=== PATIENT | female | born 1935 | race African-American/Black ===

== ENCOUNTER 2018-03-30 08:11 | Outpatient (CLI) | payer MEDICARE, OTHER ==
[2018-03-30] VITALS (9 sets, daily range): BP systolic 115–145; BP diastolic 63–80
[~2018-03-30] VITALS: Ht 154.9 cm; Wt 76.2 kg
[2018-03-30] MEDS ORDERED: MIDAZOLAM HCL/PF 2 MG/2 ML VIAL. ONE (08:39)
[2018-03-30] MEDS ORDERED: FLUMAZENIL 0.5 MG/5 ML VIAL. IV ONE (08:40)
[2018-03-30] MEDS ORDERED: fentaNYL PF VIAL 100 MCG/2 ML VIAL ONE (08:40)
[2018-03-30] MEDS ORDERED: NALOXONE 0.4 MG/ML VIAL. ONE (08:40)
[2018-03-30] MEDS ORDERED: MULT-697 PO (08:49)
[2018-03-30] MEDS ORDERED: PROP15DR EACHEYE (08:49)
[2018-03-30] MEDS ORDERED: ACET325T9 PO (08:49)
[2018-03-30] MEDS ORDERED: LIPITOR80 MG PO (08:49)
[2018-03-30] MEDS ORDERED: LISI1TAB7 PO (08:49)
[2018-03-30] MEDS ORDERED: PROAIR HFA8.5 GM INH (08:49)
[2018-03-30] MEDS ORDERED: FLUT1DIS IH (08:49)
[2018-03-30] MEDS ORDERED: CALC600T4 PO (08:49)
[2018-03-30] MEDS ORDERED: ESOM20CA PO (08:49)
[2018-03-30] MEDS ORDERED: CETI10TA16 PO (08:49)
[2018-03-30] MEDS ORDERED: CYCL1DRO EACHEYE (08:49)
[2018-03-30] MEDS ORDERED: HYDR25SU18 RC (08:49)
[2018-03-30] MEDS ORDERED: OMEG-165 PO (08:49)
[2018-03-30 08:52] LABS: BASO % 2 % (0-3); EOS # 0.4 x10^3/uL (0.0-0.7); EOS % 15 % (0-3); HEMATOCRIT 30.9 % (36.0-47.0); HEMOGLOBIN 10.6 g/dL (12.0-15.5); LYMPH # 0.5 x10^3/uL (1.0-4.8); LYMPH % 19 % (24-48); MEAN CORPUSCULAR HEMOGLOBIN 29 pg (25-35); MEAN CORPUSCULAR HGB CONC 34 g/dL (31-37); MEAN CORPUSCULAR VOLUME 86 fL (79-100); MONO # 0.1 x10^3/uL (0.0-1.1); MONO % 5 % (0-9); NEUT # 1.5 x10^3uL (1.8-7.7); NEUT % 60 % (31-73); PLATELET COUNT 209 x10^3/uL (140-400); RED BLOOD COUNT 3.61 x10^6/uL (3.50-5.40); RED CELL DISTRIBUTION WIDTH 15.5 % (11.5-14.5); WHITE BLOOD COUNT 2.5 x10^3/uL (4.0-11.0)
[2018-03-30 08:58] LABS: CALCIUM 10.4 mg/dL (8.5-10.1); CREATININE 0.9 mg/dL (0.6-1.0); GFR 72.5; POTASSIUM 4.1 mmol/L (3.5-5.1)
[2018-03-30 09:00] LABS: PROTHROMBIN TIME PATIENT 13.1 SEC (11.7-14.0)
[2018-03-30 09:04] LABS: TOTAL PROTEIN 8.1 g/dL (6.4-8.2)
[2018-03-30] MEDS ORDERED: LIDOCAINE WITH 8.4% SOD BICARB 3 ML DISP.SYRIN. ONE (09:24)
[2018-03-30] MEDS ORDERED: MIDAZOLAM HCL/PF 2 MG/2 ML VIAL. IV ONE (09:45)
[2018-03-30] MEDS ORDERED: fentaNYL PF VIAL 100 MCG/2 ML VIAL IV ONE (09:45)
[2018-03-30] MEDS ORDERED: LIDOCAINE WITH 8.4% SOD BICARB 3 ML DISP.SYRIN. IJ ONE (09:45)
--- NOTE | 2018-03-31 07:55 | RAD ---
CT-guided bone marrow biopsy. 03/31/2018 7:51 AM Indication: LEUKOPENIA Discussion: The risks and benefits of the procedure, including but not limited to, bleeding and infection were discussed patient. Informed consent was obtained. The patient was brought to the CT scanner and placed in the prone position. A timeout procedure was performed. [employer] CT imaging of the pelvis demonstrated left ilium amenable to bone marrow biopsy. The overlying soft tissues were prepped and draped using maximum sterile barrier technique. 1% lidocaine without epinephrine was administered for local anesthesia. Under intermittent CT guidance, an [employer] needle was advanced into the bone marrow of the left iliac crest. 2 Aspirates and 1 core biopsy samples were obtained. Samples were delivered to pathology was present at the time of procedure. The needle was removed and manual pressure held to achieve hemostasis. No immediate complications were identified. The procedure was performed under conscious sedation including continuous cardiopulmonary monitoring via dedicated sedation nurse. Sedation time: 20 minutes Impression: Successful CT-guided bone marrow biopsy of the left iliac crest . PQRS Compliance Statement: One or more of the following individualized dose reduction techniques were utilized for this examination: 1. Automated exposure control 2. Adjustment of the mA and/or kV according to patient size 3. Use of iterative reconstruction technique
== END 2018-03-30 11:04 | disposition home or self-care (01) ==
LOC: INTRAD 08:11
PROVIDERS: ATTEND Internal Medicine Hematology & Oncology
DX: D72.819 Decreased white blood cell count, unspecified (principal); I10 Essential (primary) hypertension; Z79.899 Other long term (current) drug therapy; Z98.890 Other specified postprocedural states; Z79.01 Long term (current) use of anticoagulants
CPT/HCPCS: 36415; 38222; 77012; 80053; 85025; 85610; 85730; 88184; 88185; 88237; J2250; J3010; 99152